=== PATIENT | female | born 2000 | race Caucasian/White ===

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

== ENCOUNTER 2018-02-04 17:45 | Outpatient (CLI) | payer OTHER ==
[~2018-02-04] VITALS: Ht 160 cm; Wt 60.5 kg
[~2018-02-04 17:45] MED LIST changes: +PRENATAL VITAM1 EAC6 PO
[2018-02-04 18:00] VITALS: BP 125/73
[2018-02-04] MEDS ORDERED: ZANTAC150 MG PO (18:16)
== END 2018-02-04 19:50 | disposition home or self-care (01) ==
LOC: LDRP-OP 17:45 → 2WEST 17:48 → LDRP-OP 04-02 16:10
DX: O26.893 Other specified pregnancy related conditions, third trimester (principal); O99.333 Smoking (tobacco) complicating pregnancy, third trimester; F17.210 Nicotine dependence, cigarettes, uncomplicated; Z3A.36 36 weeks gestation of pregnancy
CPT/HCPCS: 59025; G0378

== ENCOUNTER 2018-02-15 20:22 | Outpatient (CLI) | payer OTHER ==
[~2018-02-15 20:22] MED LIST changes: +ZANTAC150 MG PO
== END 2018-02-15 22:45 | disposition home or self-care (01) ==
LOC: LDRP-OP 20:22 → 2WEST 20:25 → LDRP-OP 04-12 20:04
DX: O47.1 False labor at or after 37 completed weeks of gestation (principal); Z3A.37 37 weeks gestation of pregnancy
CPT/HCPCS: 59025; G0378

== ENCOUNTER 2018-02-24 01:34 | Outpatient (CLI) | payer OTHER ==
[2018-02-24 03:50] VITALS: BP 129/80
[2018-02-24] MEDS ORDERED: MACROBID100 MG PO (14:19)
== END 2018-02-24 04:30 | disposition home or self-care (01) ==
LOC: LDRP-OP 01:34 → 2WEST 01:35 → LDRP-OP 04-12 23:09
DX: O47.1 False labor at or after 37 completed weeks of gestation (principal); Z3A.38 38 weeks gestation of pregnancy; O99.343 Other mental disorders complicating pregnancy, third trimester; F32.9 Major depressive disorder, single episode, unspecified; F41.9 Anxiety disorder, unspecified; O99.613 Diseases of the digestive system complicating pregnancy, third trimester; K21.9 Gastro-esophageal reflux disease without esophagitis; Z87.891 Personal history of nicotine dependence
CPT/HCPCS: 59025; G0378

== ENCOUNTER 2018-02-24 12:59 | Outpatient (CLI) | payer OTHER ==
[2018-02-24 13:10] VITALS: BP 118/69
[2018-02-24 13:17] VITALS: BP 120/74
[2018-02-24 13:53] LABS: APPEARANCE CLOUDY ((CLEAR)); BILIRUBIN NEGATIVE; BLOOD NEGATIVE; COLOR YELLOW ((YELLOW)); GLUCOSE (STRIP) NEGATIVE; KETONES NEGATIVE; LEUKOCYTES TRACE; NITRITE NEGATIVE; PROTEIN (STRIP) 30; SPECIFIC GRAVITY 1.028 (1.000-1.030); UROBILINOGEN 0.2 MG/DL (0.2-1.0)
[2018-02-24 14:11] LABS: BACTERIA 1+ /HPF; EPITHELIAL CELLS 2+ /HPF; MUCUS 1+ /LPF; RED BLOOD CELLS 0-5 /HPF (0-5); UCUL ADDED? YES
[2018-02-24] MEDS ORDERED: MACROBID100 MG PO (14:19)
== END 2018-02-24 14:32 | disposition home or self-care (01) ==
LOC: LDRP-OP 12:59 → 2WEST 13:00 → LDRP-OP 04-12 04:47
PROVIDERS: Advanced Practice Midwife
DX: O47.1 False labor at or after 37 completed weeks of gestation (principal); O36.8130 Decreased fetal movements, third trimester, not applicable or unspecified; O99.341 Other mental disorders complicating pregnancy, first trimester; F32.9 Major depressive disorder, single episode, unspecified; F41.9 Anxiety disorder, unspecified; O99.611 Diseases of the digestive system complicating pregnancy, first trimester; K21.9 Gastro-esophageal reflux disease without esophagitis; O99.333 Smoking (tobacco) complicating pregnancy, third trimester; F17.210 Nicotine dependence, cigarettes, uncomplicated; R35.0 Frequency of micturition; Z3A.39 39 weeks gestation of pregnancy
CPT/HCPCS: 59025; 81003; 87086; G0378

== ENCOUNTER 2018-02-24 21:55 | Inpatient (IN) | payer OTHER ==
[~2018-02-24] VITALS: Ht 160 cm; Wt 63.0 kg
[~2018-02-24 21:55] MED LIST changes: +MACROBID100 MG PO
[2018-02-24 22:09] VITALS: BP 139/80
[2018-02-24 23:05] VITALS: BP 132/71
[2018-02-24 23:07] LABS: BASOPHIL (%) 0.3 % (0-1); EOSINOPHIL (%) 1.1 % (0-5); EOSINOPHIL COUNT 0.1 K/uL (0-0.3); IMMATURE GRANULOCYTE (%) 0.6 % (0.0-0.7); LYMPHOCYTE (%) 23.3 % (15-42); LYMPHOCYTE COUNT 2.7 K/uL (1.0-2.8); MCH 28.1 PG (29.0-34.0); MCHC 33.3 G/DL (30.0-36.0); MCV 84.4 FL (83-99); MONOCYTE (%) 8.7 % (3-12); NEUTROPHIL COUNT 7.7 K/uL (1.8-6.4); PLATELET COUNT 250 K/uL (156-360); RBC DIS.WIDTH-CV 13.3 % (11.8-14.6); RBC DIS.WIDTH-SD 40.2 % (39-53); RED BLOOD COUNT 3.91 M/uL (3.80-5.20); WHITE BLOOD COUNT 11.7 K/uL (4.1-10.2)
[2018-02-25] VITALS (18 sets, daily range): BP systolic 118–149; BP diastolic 65–95
[2018-02-25 00:53] LABS: AMPHETAMINE NEGATIVE (500 ng/mL); BARBITURATES NEGATIVE (200 ng/mL); BENZODIAZEPINES NEGATIVE (150 ng/mL); BUPRENORPHINE NEGATIVE (10 ng/mL); COCAINE NEGATIVE (150 ng/mL); METHADONE NEGATIVE (200 ng/mL); METHAMPHETAMINE NEGATIVE (500 ng/mL); OPIATES (MORPHINE) NEGATIVE (100 ng/mL); OXYCODONE NEGATIVE (100 ng/mL); PHENCYCLIDINE NEGATIVE (25 ng/mL); PROPOXYPHENE NEGATIVE (300 ng/mL); THC CANNABINOIDS NEGATIVE (50 ng/mL); TRICYCLIC ANTIDEPRESSANTS NEGATIVE (300 ng/mL)
[2018-02-26 06:38] LABS: BASOPHIL (%) 0.3 % (0-1); EOSINOPHIL (%) 1.2 % (0-5); EOSINOPHIL COUNT 0.2 K/uL (0-0.3); IMMATURE GRANULOCYTE (%) 0.6 % (0.0-0.7); LYMPHOCYTE (%) 20.9 % (15-42); MCH 27.6 PG (29.0-34.0); MCHC 31.9 G/DL (30.0-36.0); MCV 86.5 FL (83-99); MONOCYTE (%) 7.6 % (3-12); MONOCYTE COUNT 1.1 K/uL (0-0.8); NEUTROPHIL (%) 69.4 % (45-76); NEUTROPHIL COUNT 9.9 K/uL (1.8-6.4); PLATELET COUNT 207 K/uL (156-360); RBC DIS.WIDTH-CV 13.6 % (11.8-14.6); RBC DIS.WIDTH-SD 42.1 % (39-53); WHITE BLOOD COUNT 14.3 K/uL (4.1-10.2)
[2018-02-26 06:39] LABS: HEMOGLOBIN 8.6 G/DL (11.9-15.5); RED BLOOD COUNT 3.12 M/uL (3.80-5.20)
[2018-02-27 07:38] VITALS: BP 132/83
[2018-02-27] MEDS ORDERED: IBUPROFEN800 MG PO (09:25)
[2018-02-27] MEDS ORDERED: CHROMAGEN,1 CAPSULE PO (09:25)
== END 2018-02-27 13:15 | disposition home or self-care (01) | DRG 775 ==
LOC: LDRP-OP 21:55 → 2WEST 21:58
PROVIDERS: Advanced Practice Midwife
DX: O70.0 First degree perineal laceration during delivery (principal); D62 Acute posthemorrhagic anemia; O99.02 Anemia complicating childbirth; O63.9 Long labor, unspecified; K21.9 Gastro-esophageal reflux disease without esophagitis; O99.62 Diseases of the digestive system complicating childbirth; Z37.0 Single live birth; F17.200 Nicotine dependence, unspecified, uncomplicated; O99.334 Smoking (tobacco) complicating childbirth; Z3A.39 39 weeks gestation of pregnancy
CPT/HCPCS: 85025; 87086; G0378; J0595; J1050; J7120